=== PATIENT | female | born 1970 | race Caucasian/White ===

== ENCOUNTER 2020-03-12 22:20 | Emergency (ER) | payer OTHER ==
[~2020-03-12] VITALS: Ht 170.2 cm; Wt 113.4 kg
[2020-03-12] MEDS ORDERED: NEOMYCIN-POLY-7.5 ML OPHTHALMIC (22:32)
== END 2020-03-12 23:13 ==
LOC: ER 22:20
DX: H10.9 Unspecified conjunctivitis (principal)

== ENCOUNTER → 2020-06-02 | Outpatient (CLI) | payer OTHER ==
[~2020-06-02] MED LIST: NEOMYCIN-POLY-7.5 ML OPHTHALMIC
[2020-06-02 12:25] LABS: ABSOLUTE NEUTROPHILS 4.5 thou/uL (1.4-8.2); EOSINOPHILS 3.5 % (0.0-3.0); HEMATOCRIT 44.6 % (37.0-47.0); HEMOGLOBIN 14.5 gm/dL (12.0-15.0); LYMPHOCYTES 32.2 % (24.0-44.0); MCH 28.4 pg (26.0-34.0); MCHC 32.5 g/dL (28.0-37.0); MCV 87.3 fL (80.0-100.0); MONOCYTES 5.4 % (1.0-8.0); PLATELET COUNT 244 thou/uL (150-400); POLYS 57.9 % (36.0-66.0); RBC 5.11 mil/uL (4.20-5.00); RDW 14.7 % (10.5-14.5); WBC 7.8 thou/uL (4.0-11.0)
[2020-06-02 12:39] LABS: ALBUMIN 3.9 g/dL (3.4-5.0); ANION GAP 13 mmol/L (7-16); BUN 11 mg/dL (7-18); CALCIUM 9.2 mg/dL (8.5-10.1); CHLORIDE 104 mmol/L (98-107); CHOLESTEROL 150 mg/dL (<200); CO2 26 mmol/L (21-32); GLUCOSE 88 mg/dL (74-106); HDL CHOLESTEROL 45 mg/dL (>40); LDL CHOLESTEROL 77 mg/dL (<100); POTASSIUM 3.8 mmol/L (3.5-5.1); SGOT 15 U/L (15-37); SGPT 33 U/L (30-65); SODIUM 143 mmol/L (136-145); TC:HDL 3.3 Ratio (Not establshd); TOTAL BILIRUBIN 0.2 mg/dL (0.2-1.0); TOTAL PROTEIN 7.6 g/dL (6.4-8.2); TRIGLYCERIDE 142 mg/dL (<150); VLDL 28 mg/dL (<40)
== END ==
LOC: LAB 11:16
PROVIDERS: ATTEND Nurse Practitioner
DX: Z00.00 Encounter for general adult medical examination without abnormal findings (principal); E55.9 Vitamin D deficiency, unspecified

== ENCOUNTER → 2020-06-23 | Outpatient (CLI) | payer OTHER ==
[2020-06-23 12:24] LABS: ALBUMIN 3.8 g/dL (3.4-5.0); CALCIUM 9.3 mg/dL (8.5-10.1); CREATININE 1.1 mg/dL (0.6-1.0); POTASSIUM 3.6 mmol/L (3.5-5.1); TOTAL BILIRUBIN 0.2 mg/dL (0.2-1.0); TOTAL PROTEIN 8.1 g/dL (6.4-8.2)
== END ==
LOC: LAB 11:26
PROVIDERS: ATTEND Nurse Practitioner
DX: M62.838 Other muscle spasm (principal)

== ENCOUNTER → 2020-07-01 | Outpatient (CLI) | payer OTHER | LOC: MRI 06-27 10:30 | PROVIDERS: ATTEND Nurse Practitioner | DX: S83.241A Other tear of medial meniscus, current injury, right knee, initial encounter (principal); M17.11 Unilateral primary osteoarthritis, right knee; M75.121 Complete rotator cuff tear or rupture of right shoulder, not specified as traumatic; M75.51 Bursitis of right shoulder; G89.29 Other chronic pain; X58.XXXA Exposure to other specified factors, initial encounter; Y93.89 Activity, other specified; Y92.89 Other specified places as the place of occurrence of the external cause; Y99.8 Other external cause status ==

== ENCOUNTER → 2020-08-04 | Outpatient (CLI) | payer OTHER | LOC: RAD 08:16 → BC 10:32 | PROVIDERS: ATTEND Nurse Practitioner | DX: Z12.31 Encounter for screening mammogram for malignant neoplasm of breast (principal); M85.88 Other specified disorders of bone density and structure, other site; Z78.0 Asymptomatic menopausal state ==

== ENCOUNTER 2020-08-24 00:31 | Emergency (ER) | payer OTHER ==
[~2020-08-24] VITALS: Ht 170.2 cm; Wt 127.0 kg
[2020-08-24] MEDS ORDERED: NORVASC5 MG PO (00:45)
[2020-08-24] MEDS ORDERED: METFORMIN HCL500 M3 PO (00:46)
[2020-08-24] MEDS ORDERED: LOSARTAN POTAS100 MG PO (00:46)
[2020-08-24] MEDS ORDERED: HYDROCHLOROTH12.5 M2 PO (00:47)
[2020-08-24] MEDS ORDERED: ZOFRAN4 MG PO (00:47)
[2020-08-24] MEDS ORDERED: LEVOTHYROXINE75 MC1 PO (00:47)
[2020-08-24] MEDS ORDERED: TAMIFLU75 MG PO (01:23)
[2020-08-24 04:14] VITALS: BP 132/67
== END 2020-08-24 03:45 | disposition home or self-care (01) ==
LOC: ER 00:31
DX: J11.1 Influenza due to unidentified influenza virus with other respiratory manifestations (principal); Z79.899 Other long term (current) drug therapy; Z91.018 Allergy to other foods; Z20.822 Contact with and (suspected) exposure to COVID-19

== ENCOUNTER → 2020-10-02 | Outpatient (CLI) | payer OTHER ==
[~2020-10-02] MED LIST changes: +HYDROCHLOROTH12.5 M2 PO; +LEVOTHYROXINE75 MC1 PO; +LOSARTAN POTAS100 MG PO; +METFORMIN HCL500 M3 PO; +NORVASC5 MG PO; +TAMIFLU75 MG PO; +ZOFRAN4 MG PO
== END ==
LOC: MRI 07:26
PROVIDERS: ATTEND Nurse Practitioner
DX: M25.462 Effusion, left knee (principal)

== ENCOUNTER → 2020-10-06 | Outpatient (CLI) | payer OTHER ==
[~2020-10-06] MED LIST changes: +HYDROCODON-ACE1 EAC7 PO; +IBUPROFEN 800800 M1 PO
== END ==
LOC: LAB 13:55
PROVIDERS: Student in an Organized Health Care Education/Training Program; ATTEND Orthopaedic Surgery Sports Medicine
DX: Z01.812 Encounter for preprocedural laboratory examination (principal); Z20.822 Contact with and (suspected) exposure to COVID-19

== ENCOUNTER → 2020-10-07 | Outpatient (CLI) | payer OTHER | LOC: SJCVCIMAG 07:10 | PROVIDERS: ATTEND Internal Medicine | DX: Z01.810 Encounter for preprocedural cardiovascular examination (principal); R00.0 Tachycardia, unspecified; I49.1 Atrial premature depolarization; I11.9 Hypertensive heart disease without heart failure; R94.31 Abnormal electrocardiogram [ECG] [EKG]; E11.9 Type 2 diabetes mellitus without complications; Z79.899 Other long term (current) drug therapy ==

== ENCOUNTER 2020-10-08 11:32 | Day surgery (SDC) | payer OTHER ==
[~2020-10-08] VITALS: Ht 170.2 cm; Wt 127.0 kg
[2020-10-08 14:18] VITALS: BP 140/78
[2020-10-08 15:32] VITALS: BP 140/78
--- NOTE | 2020-10-22 13:34 | O ---
[facility] [place] [place] [address] OPERATIVE REPORT Name: MAGDY TOBIN Room #: [facility] Minnie.#: [id number] Admission: 10/08/20 Attend Phys: Raimundo Piedra Discharge: 10/08/20 Date of : 72 Report #: [id number] THIS REPORT FOR: cc: Donovan Melendez MD, Neal A. MD VanDenBerghe,Raimundo Bello MD ~ DOC #: [id number] Raimundo Cornell MD DATE OF SERVICE: 10/08/2020 DATE OF PROCEDURE: 10/08/2020. PREOPERATIVE DIAGNOSES: Right shoulder pain, rotator cuff tear, acromioclavicular joint arthrosis. POSTOPERATIVE DIAGNOSES: Right shoulder rotator cuff tear, small high-grade partial thickness, acromioclavicular joint arthrosis, labral fraying, glenohumeral joint chondromalacia, subacromial bursitis. PROCEDURES PERFORMED: Right shoulder arthroscopy, rotator cuff repair, excision of distal clavicle, extensive debridement. SURGEON: Raimundo Cornell MD GASOLINE SERVICE ATTENDANT: Cherrie Vaughan PA-C. ANESTHESIA: General. Preoperative ultrasound-guided interscalene block. FLUIDS: 400 mL crystalloid. ESTIMATED BLOOD LOSS: Negligible. DESCRIPTION OF PROCEDURE: After proper identification of the patient and the operative site in preoperative holding area, the operative site was signed by myself. Prophylactic antibiotics were given. The patient elected to receive an interscalene block after reviewing the risks, benefits, alternatives and potential complications with anesthesia. After a satisfactory block, the patient was brought back to the operative suite after induction of satisfactory general anesthesia per LMA. The patient was carefully positioned in the left lateral decubitus position. Stearns bag and axillary roll were utilized to support the torso. Right shoulder sterilely prepped and draped in the usual manner and placed within 10 pounds of balanced arthroscopic suspension. Posterior portal was established, joint was inflated with an arthroscopic pump set at 40 mmHg. Anterior superior portal was then created using a spinal needle for localization. Examination of the glenohumeral joint revealed some fraying of the anterior superior labrum. This was carefully debrided. [facility] [address] [address] OPERATIVE REPORT Name: MAGDY TOBIN Room #: [facility] M.R.#: [id number] Admission: 10/08/20 Attend Phys: Raimundo Piedra Discharge: 10/08/20 Date of : 72 Report #: [id number] biceps tendon was intact and stable in its attachment on the superior labrum as well as no evidence of groove pathology was noted. Some very minimal fraying of the upper border of the subscapularis was noted without any significant uncovering of the footprint or instability of the biceps noted. This area was carefully debrided as shown in image 6, small area of chondral fibrillation was noted at the more posterior inferior glenoid. This area was carefully debrided. From the articular side the rotator cuff appeared intact. Rotator cable was intact. Arthroscope was introduced in the subacromial space and the lateral portion of the supraspinatus extending to the infraspinatus demonstrated pronounced softening. The probe could easily be passed through this area of partial thickness tearing and the frayed fibers were debrided. An approximate 12 mm tear was noted. Greater tuberosity was prepared with a sharp ring curette and motorized shaver through a separate portal of the lateral border of the acromion, a double-loaded Arthrex 4.75 mm SwiveLock was inserted. Sutures were passed in a horizontal and simple manner, creating a T-type stitch. These were then tied and through a separate lateral row fixation an additional SwiveLock anchor was utilized, creating a stable double row construct. There was no significant prominence of the anterolateral edge of the acromion and minimal fraying was appreciated. Acromioclavicular joint arthrosis was noted and a distal clavicle excision was performed using a motorized bur. A 10 mm grasper could be open documenting the resection. Superior capsular structures were left intact. Shoulder was thoroughly irrigated with normal saline. Portals were closed with simple nylon stitch. The patient will be immobilized in a sling and abduction pillow for 6 weeks postoperatively. Qualified first helper was utilized throughout the entire procedure to aid in patient limb positioning, visualization with the arthroscope instrument and suture passage as well as closure and sling and dressing application. MD MANAN Bravo/CAMERON/KWESI <ELECTRONICALLY SIGNED> By: Raimundo Cornell MD 10/22/20 1334 1418 1859 Raimundo Cornell MD /donita
== END 2020-10-08 17:25 | disposition home or self-care (01) ==
LOC: OR → TBA 13:49 → OR 14:33
PROVIDERS: ATTEND Orthopaedic Surgery Sports Medicine
DX: M25.511 Pain in right shoulder (principal); M75.101 Unspecified rotator cuff tear or rupture of right shoulder, not specified as traumatic; M19.011 Primary osteoarthritis, right shoulder; M94.211 Chondromalacia, right shoulder; M24.111 Other articular cartilage disorders, right shoulder; M75.51 Bursitis of right shoulder; I10 Essential (primary) hypertension; E11.9 Type 2 diabetes mellitus without complications; F17.210 Nicotine dependence, cigarettes, uncomplicated; G47.30 Sleep apnea, unspecified; Z98.890 Other specified postprocedural states; Z79.899 Other long term (current) drug therapy; Z98.51 Tubal ligation status
CPT/HCPCS: 50010; 50101; 50172; 50386; 50417; 50935; 51847; 53610; 56527; 57103; 57419; 57420; 58575; 58576; 58577; 58589; 62110; 62900; 70005

== ENCOUNTER 2021-07-07 17:20 | Emergency (ER) | payer OTHER ==
[~2021-07-07] VITALS: Ht 170.2 cm; Wt 136.1 kg
[2021-07-07 17:45] LABS: ABSOLUTE NEUTROPHILS 5.3 thou/uL (1.4-8.2); BASOPHILS 1.1 % (0.0-2.0); EOSINOPHILS 1.9 % (0.0-3.0); HEMATOCRIT 44.1 % (37.0-47.0); HEMOGLOBIN 14.6 gm/dL (12.0-15.0); LYMPHOCYTES 32.9 % (24.0-44.0); MCH 28.8 pg (26.0-34.0); MCHC 33.1 g/dL (28.0-37.0); MCV 86.9 fL (80.0-100.0); MONOCYTES 5.3 % (1.0-8.0); PLATELET COUNT 239 thou/uL (150-400); POLYS 58.8 % (36.0-66.0); RBC 5.08 mil/uL (4.20-5.00); RDW 14.4 % (10.5-14.5); WBC 9.1 thou/uL (4.0-11.0)
[2021-07-07 17:53] LABS: ANION GAP 13 mmol/L (7-16); BUN 19 mg/dL (7-18); CALCIUM 9.3 mg/dL (8.5-10.1); CHLORIDE 96 mmol/L (98-107); CO2 24 mmol/L (21-32); CREATININE 1.1 mg/dL (0.6-1.0); GLUCOSE 353 mg/dL (74-106); POTASSIUM 3.8 mmol/L (3.5-5.1); SODIUM 133 mmol/L (136-145)
[2021-07-07 18:03] LABS: ALBUMIN 3.7 g/dL (3.4-5.0); DIRECT BILIRUBIN < 0.1 mg/dL (<0.1-0.2); MAGNESIUM 1.5 mg/dL (1.8-2.4); SGOT 41 U/L (15-37); SGPT 61 U/L (30-65); TOTAL BILIRUBIN 0.2 mg/dL (0.2-1.0); TOTAL PROTEIN 7.9 g/dL (6.4-8.2)
[2021-07-07] MEDS ORDERED: DILTIAZEM ER120 MG PO (18:19)
[2021-07-07] MEDS ORDERED: CONTRAVE ER 8-1 EACH PO (18:20)
[2021-07-07 20:35] VITALS: BP 113/77
--- NOTE | 2021-07-08 07:46 | EKG ---
[place] [address] [place] [address] ELECTROCARDIOGRAM REPORT Name: MAGDY TOBIN Room #: [facility]#: [id number] Admission: 07/07/21 Attend Phys: Discharge: 07/07/21 Date of : 72 Report #: [id number] [facility] ED Test Date: 2021-07-07 Test Time: 18:04:18 Pat Name: MAGDY TOBIN Department: Room: Gender: F Colon And Rectal Surgeon: HEMA : 1970 Requested By: Alon Wolfe Order Number: [id number] MD: Ismael Ashton Measurements Intervals [place] Rate: 126 P: [place]: QRS: -77 QRSD: 114 T: 50 QT: 354 QTc: 513 Interpretive Statements Atrial flutter with 2:1 AV block Abnormal R-wave progression, late transition Left anterior hemiblock Nonspecific intraventricular conduction delay Prolonged QT interval No previous ECG available for comparison Electronically Signed On 07-08-2021 7:45:46 [employer] by Ismael Ashton [email or web address] <ELECTRONICALLY SIGNED> By: Ismael Ashton MD, [facility] 07/08/21 0745 1804 180 Ismael Ashton MD, FACC /EPI
--- NOTE | 2021-07-08 07:48 | EKG ---
[facility] [place] [address] ELECTROCARDIOGRAM REPORT Name: MAGDY TOBIN Room #: [facility]#: [id number] Admission: 07/07/21 Attend Phys: Discharge: 07/07/21 Date of : 72 Report #: [id number] [facility] ED Test Date: 2021-07-07 Test Time: 19:54:22 Pat Name: MAGDY TOBIN Department: Room: Gender: F Care Clinician: KATHARINE : 1970 Requested By: Alon Wolfe Order Number: [id number] MD: Ismael Ashton Measurements Intervals [place] Rate: 97 P: [place]: QRS: -70 QRSD: 114 T: 59 QT: 371 QTc: 472 Interpretive Statements Atrial flutter with predominant 3:1 AV block Abnormal R-wave progression, late transition Left anterior hemiblock Nonspecific intraventricular conduction delay Compared to ECG 07/07/2021 18:04:18 Heart rate has slowed Electronically Signed On 07-08-2021 7:48:27 [place] by Ismael Ashton [email or web address] <ELECTRONICALLY SIGNED> By: Ismael Ashton MD, [facility] 07/08/21 0748 53 53 Ismael Ashton MD, [facility] /EPI
--- NOTE | 2021-07-08 10:02 | EKG ---
[facility] [place] [address] ELECTROCARDIOGRAM REPORT Name: MAGDY TOBIN [id number] Admission: 07/07/21 Attend Phys: Discharge: 07/07/21 Date of : 72 Report #: [id number] [facility] ED Test Date: 2021-07-07 Test Time: 17:30:09 Pat Name: MAGDY TOBIN Department: Room: Gender: F Track Man: ALEXANDRA : 1970 Requested By: Alon Wolfe Order Number: [id number] MD: Samy Joyner Measurements Intervals [place] Rate: 140 P: [place]: QRS: -69 QRSD: 114 T: 67 QT: 308 QTc: 470 Interpretive Statements AFIB Abnormal R-wave progression, late transition Probable left ventricular hypertrophy Lateral leads are also involved Baseline wander in lead(s) V1,V2 No previous ECG available for comparison Electronically Signed On 07-08-2021 10:02:17 CORRECTIVE THERAPIST by Samy Joyner [email or web address] <ELECTRONICALLY SIGNED> By: Samy Joyner MD, [facility] 07/08/21 1002 1730 1730 Samy Joyner MD, FACC /EPI
== END 2021-07-07 20:46 | disposition home or self-care (01) ==
LOC: ER 17:20
PROVIDERS: Student in an Organized Health Care Education/Training Program
DX: I48.91 Unspecified atrial fibrillation (principal); Z20.822 Contact with and (suspected) exposure to COVID-19; I10 Essential (primary) hypertension; E03.9 Hypothyroidism, unspecified; E11.9 Type 2 diabetes mellitus without complications; Z98.51 Tubal ligation status; Z79.899 Other long term (current) drug therapy; Z91.02 Food additives allergy status